=== PATIENT | female | born 1935 | race Caucasian/White ===

== ENCOUNTER → 2017-07-08 | Outpatient (CLI) | payer MEDICARE ==
[~2017-07-08] MED LIST: AMLO10TA82 PO; CALC-80 PO; CEPH-38 PO; CEPH500C PO; FLAX100031 PO; FURO20TA4 PO; HYDR1TAB PO; MELO-195 PO; OMEG1CAP51 PO; RIVA10TA PO; SMV20T PO; TRM50T PO
--- NOTE | 2017-07-09 14:02 | Diagnostic Imaging Report ---
Right breast screening mammogram 2D views with tomosynthesis The current study was also evaluated with a Computer Aided Detection (CAD) system. INDICATION: Screening. No current complaints stated on the questionnaire. The patient has had prior left mastectomy for breast cancer. COMPARISON: 06/25/2016. FINDINGS: The right breast is composed of heterogeneously dense parenchyma which may decrease mammographic sensitivity. No mass, architectural distortion, or suspicious cluster of calcifications seen. Allowing for technique and positional differences, no suspicious change is seen. IMPRESSION: No significant change. ACR BI-RADS Category 2: Benign findings. Result letter will be mailed to the patient. Note: At least 10% of breast cancer is not imaged by mammography. Dictated on workstation # [id number]
== END ==
LOC: RAD 11:04
PROVIDERS: ATTEND Registered Nurse
DX: Z12.31 Encounter for screening mammogram for malignant neoplasm of breast (principal)

== ENCOUNTER → 2018-08-22 | Outpatient (CLI) | payer MEDICARE ==
--- NOTE | 2018-08-22 14:58 | Diagnostic Imaging Report ---
INDICATION: Right breast lump. COMPARISON: Correlation is made with the prior mammogram from 07/08/2017 and 06/25/2016. TECHNIQUE: 2D and 3D unilateral right diagnostic mammography was performed with CAD. FINDINGS: The patient reports no longer having a palpable abnormality in the right breast. The patient states that she did have a palpable abnormality in April; however, she decided not to come in to be evaluated. The palpable abnormality from April is no longer felt. Despite this, a BB marker was placed in the right axillary region where the patient reported the palpable lump was in April. The right breast is heterogeneously dense, limiting the sensitivity of mammography. The overall parenchymal pattern is stable. No mass is seen. No abnormality at the area of the BB marker in the right axilla is seen. No suspicious calcifications are identified. IMPRESSION: No mammographic features suspicious for malignancy are identified. Even so, directed sonographic interrogation of the area of palpable abnormality in the right axilla is recommended and will be performed today. ACR BI-RADS Category 0: Incomplete. (Needs additional imaging evaluation). Result letter will be mailed to the patient. Note: At least 10% of breast cancer is not imaged by mammography. Dictated by: Dictated on workstation # [id number]
--- NOTE | 2018-08-22 19:15 | Diagnostic Imaging Report ---
INDICATION: Palpable lump in the right axilla in April. Patient denies having a palpable abnormality today. The study is performed for further evaluation. Sonographic interrogation of the area of previous palpable abnormality in the right axilla was performed. No sonographic abnormality is seen. No solid or cystic masses are identified. There is a fatty lymph node in the right axilla approximately 1.6 x 1.3 x 0.8 cm. IMPRESSION: BI-RADS category 1. No suspicious sonographic abnormality is seen. Continued close clinical and self breast exams are recommended to confirm stability of previously noted palpable abnormality. Dictated by: Dictated on workstation # [id number]
== END ==
LOC: RAD 14:09
PROVIDERS: ATTEND Registered Nurse
DX: N63.10 Unspecified lump in the right breast, unspecified quadrant (principal); Z90.12 Acquired absence of left breast and nipple

== ENCOUNTER 2018-10-14 12:06 | Inpatient (IN) | payer MEDICARE ==
[~2018-10-14] VITALS: Ht 165.1 cm; Wt 71.9 kg
[2018-10-14] VITALS (12 sets, daily range): BP systolic 116–147; BP diastolic 57–115
[2018-10-14] MEDS ORDERED: CALCIUM CARBONATE 500 MG (TUMS) TAB.CHEW PO PRN (14:30)
[2018-10-14] MEDS ORDERED: ONDANSETRON 4 MG/2 ML (SDV) Z0FRAN IVP PRN (14:30)
[2018-10-14] MEDS ORDERED: DOCUSATE SODIUM 100 MG (COLACE) CAP PO PRN (14:30)
[2018-10-14] MEDS ORDERED: ALPRAZolam 0.25 MG (XANAX) TAB PO PRN (14:30)
[2018-10-14] MEDS ORDERED: DILTIAZEM INJECTION 125 MG in NS (IVPB) 100 ML IV SCH (14:30)
[2018-10-14] MEDS ORDERED: HYDROcodone/APAP 5 MG/325 MG (LORTAB) TAB PO PRN (14:30)
[2018-10-14] MEDS ORDERED: MELATONIN 3 MG TABLET PO PRN (14:30)
--- NOTE | 2018-10-14 15:50 | NUR ---
PT ADMITTED TO ICU9 VIA STRETCHER W/ EMS STAFF. PT ORIENTED TO SURROUNDINGS AND PLACED ON MONITORS. NO QUESTIONS/CONCERNS VOICED. WILL CONT TO MONITOR.
--- NOTE | 2018-10-14 16:10 | NUR ---
DR XIONG NOTIFIED OF PT'S ARRIVAL.
[2018-10-14] MEDS ORDERED: CATHETER FLUSH 10 ML SYR IV PRN (16:15)
[2018-10-14 16:18] LABS: BASOPHILS % (AUTO) 0 % (0-10); EOSINOPHILS % (AUTO) 0 % (0-10); HEMATOCRIT 40 % (35-52); HEMOGLOBIN 13.2 G/DL (11.5-16.0); LYMPHOCYTES # (AUTO) 0.8 X 10^3 (1.0-4.0); LYMPHOCYTES % (AUTO) 10 % (12-44); MEAN CORPUSCULAR HEMOGLOBIN 29 PG (25-34); MEAN CORPUSCULAR HGB CONC 33 G/DL (32-36); MEAN CORPUSCULAR VOLUME 87 FL (80-99); MEAN PLATELET VOLUME 11.2 FL (7.4-10.4); MONOCYTES # (AUTO) 0.3 X 10^3 (0.0-1.0); MONOCYTES % (AUTO) 3 % (0-12); NEUTROPHILS # (AUTO) 7.5 X 10^3 (1.8-7.8); NEUTROPHILS % (AUTO) 87 % (42-75); PLATELET COUNT 205 10^3/uL (130-400); RED BLOOD COUNT 4.57 10^6/uL (4.35-5.85); RED CELL DISTRIBUTION WIDTH 13.7 % (10.0-14.5); WHITE BLOOD COUNT 8.7 10^3/uL (4.3-11.0)
[2018-10-14] MEDS ORDERED: AMLO10TA7 PO (16:18)
[2018-10-14] MEDS ORDERED: SIMV40TA4 PO (16:18)
--- NOTE | 2018-10-14 16:29 | NUR ---
Past[facility] Services received a call from interim sleep tech requesting we check on pt and advise her Teacher Aide will attempt o see her tomorrow. I contacted pt as she arrived at her room and offered prayer and support and delivered the message, Pt was appreciative and doing well.
[2018-10-14] MEDS ORDERED: OMG1KC PO (16:32)
[2018-10-14] MEDS ORDERED: MELO7.5T46 PO (16:32)
[2018-10-14] MEDS ORDERED: FLAX10004 PO ×2 (16:32)
[2018-10-14] MEDS: NS IV 1000 ML 1,000 ML IV SCH (16:32)
[2018-10-14] MEDS ORDERED: DIPH25CA79 PO (16:32)
--- NOTE | 2018-10-14 16:33 | NUR ---
UNABLE TO SPEAK WITH THE PATIENT PRIOR TO THE END OF SHIFT TODAY HOWEVER I CALLED [facility] FOR A LIST OF RECENTLY FILLED MEDICATIONS AND HAD A LIST SENT OVER FROM [facility] OFFICE IN [facility]. I UPDATED THE MED REC ACCORDINGLY BUT DID NOT REVIEW THE MEDICATIONS AT THIS TIME DUE TO NOT VERIFYING WITH THE PATIENT. [facility] FILLED: 10-01-18 SIMVASTATIN 40MG HS #90 08-16-18 AMLODIPINE 10MG DAILY #90 18 MELOXICAM 7.5MG DAILY #30 (LIST FROM DR. RODRIGUEZ STATES PRN) [facility] OFFICE LIST INCLUDES THE FOLLOWING OTC MEDS IN ADDITION THE THE 3 SCRIPTS: BENADRYL 25MG DAILY FISH OIL 3 DAILY NEEDED FLAXSEED OIL 1 AM 2 PM
--- NOTE | 2018-10-14 16:40 | Diagnostic Imaging Report ---
INDICATION: Arrhythmia. EXAMINATION: Portable chest at 4:24 PM. FINDINGS: The heart size and pulmonary vascularity are normal. The lungs are clear. There are no effusions or pneumothoraces. IMPRESSION: No acute abnormalities in the chest. Dictated by: Dictated on workstation # [id number]
[2018-10-14 16:42] LABS: ALANINE AMINOTRANSFERASE 45 U/L (0-55); ALBUMIN 3.7 GM/DL (3.2-4.5); ALKALINE PHOSPHATASE 83 U/L (40-136); BILIRUBIN,TOTAL 0.7 MG/DL (0.1-1.0); BUN/CREATININE RATIO 19; CALCIUM 9.6 MG/DL (8.5-10.1); CARBON DIOXIDE 28 MMOL/L (21-32); CHLORIDE 104 MMOL/L (98-107); CREATININE SERUM 0.77 MG/DL (0.60-1.30); GFR ESTIMATED > 60; GLUCOSE 183 MG/DL (70-105); SODIUM 139 MMOL/L (135-145); TOTAL PROTEIN 6.7 GM/DL (6.4-8.2)
[2018-10-14] MEDS: AMIODARONE INJECTION 450 MG in D5W IV SOLUTION (EXCEL) 250 ML IV SCH (16:44)
[2018-10-14 16:47] LABS: BAND NEUTROPHILS 0 %; BASOPHILS % (MANUAL) 0 %; EOSINOPHILS % (MANUAL) 1 %; LYMPHOCYTES % (MANUAL) 3 %; MONOCYTES % (MANUAL) 1 %; NEUTROPHILS % (MANUAL) 91 %; RBC MORPH NORMAL; REACTIVE LYMPHOCYTES 4 %
--- NOTE | 2018-10-14 17:00 | NUR ---
HOUSE NURSING COMPUTER FORWARDING SYSTEM MARKUP CLERK INFORMED OF ECHO ORDER.
[2018-10-14] MEDS: ACETAMINOPHEN 500 MG TAB (TYLENOL) PO PRN ×2 (17:10→21:28)
[2018-10-14] MEDS ORDERED: AMIODARONE FOR BOLUS 150 MG in D5W 100 ML IVPB 100 ML IV NR (17:15)
[2018-10-14] MEDS ORDERED: DILTIAZEM 25 MG/5 ML INJ (CARDIZEM) VIAL IVP NR (17:15)
--- NOTE | 2018-10-14 17:27 | History & Physical-Hospitalist ---
History of Present Illness HPI/Chief Complaint CC: New onset AF w/RVR HPI: This is an 83-year-old white female clinic patient of Debbie Causey at [facility] who had an uncomplicated right knee replacement by Dr. Heath on Wednesday and had an uneventful postoperative course of which I provided internal medicine hospitalist consultation at [place] during her stay at [facility]. She was ready to be transported to [facility] in [place] when the nurse obtained discharge vital signs and found the patient to have a heart rate of 140. EKG was obtained per protocol revealing new onset atrial fibrillation. Her blood pressure is 132/76 and she was otherwise asymptomatic but did have some palpitations. She was started on IV fluids of normal saline at 70 cc/hour and blood pressure was noted to have decreased to 110/70 so patient was given a 250 cc bolus of normal saline and then given 5 mg of Lopressor IV x1 without complication. Patient is currently doing well and has settled into ICU bed 9 and her family members are surrounding the bed. She is on a Cardizem drip and amiodarone has been added and patient will be maintained on Eliquis first dose was given before transport for stroke prophylaxis. She did report she has had palpitations in the past after she makes her bed at home at times. Source: patient, RN/MD Exam Limitations: no limitations Date Seen 10/14/18 Time Seen by a Provider: 17:00 Attending Physician Marcial Boyle Wen-Chou MD Referring Physician Date of Admission Oct 14, 2018 at 15:50 Home Medications & Allergies Home Medications Reviewed patient Home Medication Reconciliation performed by pharmacy medication reconciliations electrocardiogram technician and/or nursing. Patients Allergies have been reviewed. Allergies Allergies Coded Allergies Tetanus Vaccines & Toxoid (Unverified AllergySWELLING, 07/15/11) Past Gsywbra-Sbiyet-Nxnwrz Hx Past Med/Social Hx: Reviewed Nursing Past Med/Soc Hx, Reviewed and Corrections made Patient Social History Marrital Status: Employed/Student: retired Smoking Status: Never a Smoker Immunizations Up To Date Date of Influenza Vaccine: Jun 27, 2013 Past Medical History Surgeries: Orthopedic Cardiac: Heart Murmur Reproductive: No Musculoskeletal: Arthritis Cancer: Skin Review of Systems Constitutional: see HPI, dizziness, malaise, weakness EENTM: no symptoms reported Respiratory: no symptoms reported Cardiovascular: palpitations Gastrointestinal: loss of appetite, nausea, vomiting Genitourinary: no symptoms reported Musculoskeletal: joint pain Skin: no symptoms reported Psychiatric/Neurological: No Symptoms Reported All Other Systems Reviewed Negative Unless Noted: Yes Physical Exam Physical Exam Vital Signs Vital Signs - First Documented Capillary Refill : Less Than 3 Seconds Height, Weight, BMI Height: 5'5.00" Weight: 158lbs. 7.0oz. [id number]; 26.4 BMI Method:Stated General Appearance: No Apparent Distress, WD/WN, Chronically ill Eyes: Bilateral Eye Normal Inspection, Bilateral Eye PERRL HEENT: PERRL/EOMI, Normal ENT Inspection, Pharynx Normal Neck: Full Range of Motion, Normal Inspection, Non Tender, Supple, Carotid Bruit Respiratory: Chest Non Tender, Lungs Clear, Normal Breath Sounds, No Accessory Muscle Use, No Respiratory Distress Cardiovascular: No Edema, No Gallop, No JVD, No Murmur, Normal Peripheral Pulses, Irregularly Irregular, Tachycardia Gastrointestinal: Normal Bowel Sounds, No Organomegaly, No Pulsatile Mass, Non Tender, Soft Back: Normal Inspection, No CVA Tenderness, No Vertebral Tenderness Extremity: Normal Capillary Refill, Normal Inspection, Normal Range of Motion ( except post op right knee), Non Tender, No Calf Tenderness, No Pedal Edema Neurologic/Psychiatric: Alert, Oriented x3, No Motor/Sensory Deficits, Normal Mood/Affect Skin: Normal Color, Warm/Dry Lymphatic: No Adenopathy Results Results/Procedures Labs Laboratory Tests 10/14/18 16:12 Patient resulted labs reviewed. Assessment/Plan Admission Diagnosis Assessment: New onset AF w/RVR s/p right knee replacement POD # [address] Heath HTN Known cardiac murmur OA Plan: Ambrocio Richey consultation is appreciated Eliquis for CVA prophylaxis ECHO Troponin, BNP Admission Status: Observation Diagnosis/Problems Diagnosis/Problems (1) Atrial fibrillation with rapid ventricular response Status: Acute (2) Hypertension Status: Chronic Qualifiers: Hypertension type: essential hypertension Qualified Codes: I10 - Essential (primary) hypertension (3) Cardiac murmur Status: Chronic (4) Osteoarthritis Status: Chronic Qualifiers: Osteoarthritis location: unspecified site Osteoarthritis type: unspecified Qualified Codes: M19.90 - Unspecified osteoarthritis, unspecified site (5) Total knee replacement status Status: Acute Qualifiers: Laterality: right Qualified Codes: Z96.651 - Presence of right artificial knee joint MARCIAL BOYLE DO Oct 14, 2018 17:27
[2018-10-14] MEDS: APIXABAN 5 MG (ELIQUIS) TABLET PO SCH (21:28)
[2018-10-15] VITALS (15 sets, daily range): BP systolic 105–143; BP diastolic 52–81
[2018-10-15] MEDS: AMIODARONE INJECTION 450 MG in D5W IV SOLUTION (EXCEL) 250 ML IV SCH (01:00)
[2018-10-15] MEDS: NS IV 1000 ML 1,000 ML IV SCH ×2 (01:00→09:22)
[2018-10-15] MEDS: ACETAMINOPHEN 500 MG TAB (TYLENOL) PO PRN ×3 (01:18→14:30)
[2018-10-15 03:34] LABS: BASOPHILS % (AUTO) 0 % (0-10); EOSINOPHILS # (AUTO) 0.2 10^3/uL (0.0-0.3); EOSINOPHILS % (AUTO) 2 % (0-10); HEMATOCRIT 33 % (35-52); HEMOGLOBIN 10.8 G/DL (11.5-16.0); LYMPHOCYTES % (AUTO) 15 % (12-44); MEAN CORPUSCULAR HEMOGLOBIN 29 PG (25-34); MEAN CORPUSCULAR HGB CONC 33 G/DL (32-36); MEAN CORPUSCULAR VOLUME 87 FL (80-99); MEAN PLATELET VOLUME 11.2 FL (7.4-10.4); MONOCYTES # (AUTO) 0.4 X 10^3 (0.0-1.0); MONOCYTES % (AUTO) 6 % (0-12); NEUTROPHILS # (AUTO) 5.2 X 10^3 (1.8-7.8); NEUTROPHILS % (AUTO) 78 % (42-75); PLATELET COUNT 160 10^3/uL (130-400); RED BLOOD COUNT 3.72 10^6/uL (4.35-5.85); RED CELL DISTRIBUTION WIDTH 13.7 % (10.0-14.5); WHITE BLOOD COUNT 6.7 10^3/uL (4.3-11.0)
[2018-10-15 03:52] LABS: ALANINE AMINOTRANSFERASE 38 U/L (0-55); ALBUMIN 2.9 GM/DL (3.2-4.5); ALKALINE PHOSPHATASE 66 U/L (40-136); BILIRUBIN,TOTAL 0.7 MG/DL (0.1-1.0); BUN/CREATININE RATIO 21; CALCIUM 8.5 MG/DL (8.5-10.1); CARBON DIOXIDE 22 MMOL/L (21-32); CHLORIDE 107 MMOL/L (98-107); CREATININE SERUM 0.71 MG/DL (0.60-1.30); GFR ESTIMATED > 60; GLUCOSE 152 MG/DL (70-105); MAGNESIUM 1.8 MG/DL (1.8-2.4); PHOSPHORUS 2.1 MG/DL (2.3-4.7); POTASSIUM 3.5 MMOL/L (3.6-5.0); SODIUM 137 MMOL/L (135-145); TOTAL PROTEIN 5.3 GM/DL (6.4-8.2)
[2018-10-15] MEDS ORDERED: POTASSIUM CL 10MEQ/50ML IVPB 50 ML IV SCH (06:00)
[2018-10-15] MEDS ORDERED: KCL 20 MEQ TAB (K-DUR) PO SCH (06:00)
[2018-10-15] MEDS ORDERED: MAGNESIUM 1 GM/100 ML IVPB 100 ML IV SCH (06:00)
--- NOTE | 2018-10-15 08:37 | Diagnostic Imaging Report ---
Indication: Dyspnea. Comparison: 10/14/2018. Discussion: Single portable upright view of the chest was obtained. Stable normal heart size. No focal consolidation, pleural fluid, or pneumothorax. No osseous abnormality. Impression: 1. Stable negative chest. Dictated by: Dictated on workstation # [id number]
[2018-10-15] MEDS ORDERED: KCL 20 MEQ TAB (K-DUR) PO NR (09:00)
[2018-10-15] MEDS: APIXABAN 5 MG (ELIQUIS) TABLET PO SCH (09:22)
--- NOTE | 2018-10-15 10:12 | Consultation-Cardiology ---
HPI-Cardiology Cardiology Consultation: Date of Consultation 10/15/18 Date of Admission Attending Physician Marcial Boyle DO Admitting Physician Leah Whitman MD Consulting Physician Eitan RICHEY MD HPI: Time Seen by a Provider: 10:10 Chief Complaint: Atrial fibrillation This is a 83-year-old lady who had uncomplicated right knee replacement. However she went into atrial fibrillation with rapid ventricular rate. Her blood pressure was stable. She was given fluids and one dose of Lopressor and transferred to our hospital. She was started on Cardizem infusion and amiodarone infusion overnight. The patient denied any chest pain, shortness of breath, syncope or near syncope. She was started on Eliquis. When I saw the patient she had converted to sinus rhythm. Review of Systems-Cardiology Review of Systems Constitutional: As described under HPI; No As described under HPI, No no symptoms reported, No chills, No fever, No lightheadedness Eyes: No As described under HPI, No no symptoms reported, No blindness, No blurred vision, No contact lenses, No drainage, No decreased acuity, No foreign body sensation, No pain, No vision change Ears/Nose/Throat: No As described under HPI, No no symptoms reported, No chronic hearing loss, No ear discharge, No ear pain, No nasal drainage, No ulcerations Respiratory: No no symptoms reported; As described under HPI; No As described under HPI, No cough, No orthopnea, No shortness of breath, No SOB with excertion Cardiovascular: No no symptoms reported; As described under HPI; No As described under HPI, No chest pain, No edema, No irregular heart rate, No lightheadedness; palpitations Gastrointestinal: No no symptoms reported, No As described under HPI, No abdomen distended, No abdominal pain, No blood streaked bowels, No constipation , No diarrhea, No nausea, No vomiting, No stool coloration changes Genitourinary: No As described under HPI, No burning, No dysuria, No discharge , No frequency, No flank pain, No hematuria, No urgency : Yes : No Skin: No rash, No skin related problems, No ulcerations Psychiatric/Neurological: No anxiety, No depression, No seizure, No focal weakness, No syncope Hematologic: No bleeding abnormalities All Other Systems Reviewed Negative Unless Noted: Yes [id number]-[id number] Hx Patient Social History Marrital Status: Employed/Student: retired Alcohol Use: Denies Use Recreational Drug Use: No Smoking Status: Never a Smoker Physical Abuse Screen: No Sexual Abuse: No Immunizations Up To Date Date of Pneumonia Vaccine: May 28, 2018 Date of Influenza Vaccine: May 28, 2018 Past Medical History PMH As described under Assessment. Allergies and Home Medications Allergies Coded Allergies: Tetanus Vaccines & Toxoid (Unverified Allergy, SWELLING, 07/15/11) Home Medications Amlodipine Besylate 10 Mg Tablet, 10 MG PO DAILY, (Reported) Apixaban 5 Mg Tablet, 5 MG PO BID Prescribed by: MARCIAL BOYLE on 10/15/18 1336 Diphenhydramine HCl 25 Mg Capsule, 25 MG PO DAILY, (Reported) Flaxseed Oil 1,000 Mg Capsule, 1,000 MG PO DAILY, (Reported) Flaxseed Oil 1,000 Mg Capsule, 2,000 MG PO HS, (Reported) Meloxicam 7.5 Mg Tablet, 7.5 MG PO DAILY PRN for PAIN-MILD, (Reported) Metoprolol Succinate 50 Mg Tab.er.24h, 50 MG PO DAILY Prescribed by: MARCIAL BOYLE on 10/15/18 1336 [place] 3 Polyunsat Fatty Acids 1,000 Mg Cap, 3,000 MG PO DAILY, (Reported) Simvastatin 40 Mg Tablet, 40 MG PO HS, (Reported) Patient Home Medication List Home Medication List Reviewed: Yes Physical Exam-Cardiology Physical Exam Vital Signs/I&O 10/15/18 10/15/18 10/15/18 10/15/18 03:00 04:00 04:00 04:00 Temp 98.8 Pulse 56 55 Resp 23 22 B/P (MAP) 129/59 (82) 126/55 (78) Pulse Ox 95 96 97 O2 Delivery Nasal Cannula NIV CPAP Nasal Cannula O2 Flow Rate 2.00 2.00 10/15/18 10/15/18 10/15/18 10/15/18 05:00 06:00 07:00 07:16 Pulse 55 59 57 56 Resp 23 26 21 B/P (MAP) 121/54 (76) 126/57 (80) 120/52 (74) Pulse Ox 97 97 97 O2 Delivery Nasal Cannula Nasal Cannula Nasal Cannula O2 Flow Rate 2.00 2.00 2.00 10/15/18 10/15/18 10/15/18 10/15/18 08:00 08:00 08:15 09:00 Temp 99.8 Pulse 65 66 Resp 29 18 B/P (MAP) 137/62 (87) 105/81 (89) Pulse Ox 90 96 91 O2 Delivery Nasal Cannula Room Air Nasal Cannula O2 Flow Rate 2.00 2.00 10/15/18 10/15/18 10/15/18 10/15/18 10:00 11:00 12:00 12:00 Temp 99.2 Pulse 65 64 65 Resp 27 14 B/P (MAP) 143/63 (89) 143/67 (92) 135/66 (89) Pulse Ox 89 94 O2 Delivery Nasal Cannula Nasal Cannula Nasal Cannula O2 Flow Rate 2.00 2.00 2.00 10/15/18 10/15/18 10/15/18 12:00 13:00 13:10 Pulse 64 66 Resp 27 B/P (MAP) 140/62 (88) Pulse Ox 96 90 O2 Delivery Room Air Nasal Cannula O2 Flow Rate 2.00 10/15/18 00:00 Intake Total 1353 ml Balance 1353 ml Capillary Refill : Less Than 3 Seconds Data Review Labs Laboratory Tests 10/14/18 16:12: White Blood Count 8.7, Red Blood Count 4.57, Hemoglobin 13.2, Hematocrit 40, Mean Corpuscular Volume 87, Mean Corpuscular Hemoglobin 29, Mean Corpuscular Hemoglobin Concent 33, Red Cell Distribution Width 13.7, Platelet Count 205, Mean Platelet Volume 11.2H, Neutrophils (%) (Auto) 87H, Lymphocytes (%) (Auto) 10L, Monocytes (%) (Auto) 3, Eosinophils (%) (Auto) 0, Basophils (%) (Auto) 0, Neutrophils # (Auto) 7.5, Lymphocytes # (Auto) 0.8L, Monocytes # (Auto) 0.3, Eosinophils # (Auto) 0.0, Basophils # (Auto) 0.0, Neutrophils % (Manual) 91, Lymphocytes % (Manual) 3, Monocytes % (Manual) 1, Eosinophils % (Manual) 1, Basophils % (Manual) 0, Band Neutrophils 0, Reactive Lymphocytes 4, Blood Morphology Comment NORMAL, Sodium Level 139, Potassium Level 4.0, Chloride Level 104, Carbon Dioxide Level 28, Anion Gap 7, Blood Urea Nitrogen 15, Creatinine 0.77, Estimat Glomerular Filtration Rate > 60, BUN/Creatinine Ratio 19, Glucose Level 183H, Calcium Level 9.6, Corrected Calcium 9.8, Total Bilirubin 0.7, Aspartate Amino Transf (AST/SGOT) 40H, Alanine Aminotransferase ( ALT/SGPT) 45, Alkaline Phosphatase 83, Troponin I < 0.028, B-Type Natriuretic Peptide 53.2, Total Protein 6.7, Albumin 3.7 10/15/18 03:25: White Blood Count 6.7, Red Blood Count 3.72L, Hemoglobin 10.8L, Hematocrit 33L, Mean Corpuscular Volume 87, Mean Corpuscular Hemoglobin 29, Mean Corpuscular Hemoglobin Concent 33, Red Cell Distribution Width 13.7, Platelet Count 160, Mean Platelet Volume 11.2H, Neutrophils (%) (Auto) 78H, Lymphocytes (%) (Auto) 15, Monocytes (%) (Auto) 6, Eosinophils (%) (Auto) 2, Basophils (%) (Auto) 0, Neutrophils # (Auto) 5.2, Lymphocytes # (Auto) 1.0, Monocytes # (Auto) 0.4, Eosinophils # (Auto) 0.2, Basophils # (Auto) 0.0, Sodium Level 137, Potassium Level 3.5L, Chloride Level 107, Carbon Dioxide Level 22, Anion Gap 8, Blood Urea Nitrogen 15, Creatinine 0.71, Estimat Glomerular Filtration Rate > 60, BUN/ Creatinine Ratio 21, Glucose Level 152H, Calcium Level 8.5, Corrected Calcium 9.4, Total Bilirubin 0.7, Aspartate Amino Transf (AST/SGOT) 33, Alanine Aminotransferase (ALT/SGPT) 38, Alkaline Phosphatase 66, Total Protein 5.3L, Albumin 2.9L, Phosphorus Level 2.1L, Magnesium Level 1.8 ECG Impression ECG Initial ECG Impression: Atrial Fibrillation w/RVR A/P-Cardiology Assessment/Admission Diagnosis Atrial fibrillation with rapid ventricular rate, Recent hip surgery, Hypertension, Hyperlipidemia. Diastolic dysfunction, Mild pulmonary hypertension. Plan Atrial fibrillation with rapid ventricular rate, converted to sinus rhythm on amiodarone and Cardizem infusion. We will discontinue amiodarone. Change Cardizem to metoprolol as an outpatient. Continue Eliquis. Patient can follow- up with me as an outpatient. Recent hip surgery, Hypertension, continue Norvasc and metoprolol. Hyperlipidemia, continue statin therapy. Diastolic dysfunction: Not in congestive heart failure. Mild pulmonary hypertension, continue to follow. Thank you for your consultation. Please call me if you have any questions. Duane Richey MD, FACP, FACC, FSCAI, FHRS, CCDS Interventional Cardiology Cardiac Electrophysiology Vascular Medicine and Endovascular Interventions Clinical Quality Measures DVT/VTE Risk/Contraindication: Risk Factor Score Per Nursin RFS Level Per Nursing on Admit: 4+=Very High Eitan RICHEY MD Oct 15, 2018 10:12 am
[2018-10-15] MEDS ORDERED: meTOproloL SUCCINATE 50 MG (TOPROL XL) TAB PO SCH (12:00)
--- NOTE | 2018-10-15 12:53 | Progress Note-Hospitalist ---
Subjective HPI/CC On Admission Date Seen by Provider: Oct 15, 2018 Time Seen by Provider: 11:30 CC: New onset AF w/RVR HPI: This is an 83-year-old white female clinic patient of Debbie Causey at [facility] who had an uncomplicated right knee replacement by Dr. Heath on Wednesday and had an uneventful postoperative course of which I provided internal medicine hospitalist consultation at [place] during her stay at [facility]. She was ready to be transported to [facility] when the nurse obtained discharge vital signs and found the patient to have a heart rate of 140. EKG was obtained per protocol revealing new onset atrial fibrillation. Her blood pressure is 132/76 and she was otherwise asymptomatic but did have some palpitations. She was started on IV fluids of normal saline at 70 cc/hour and blood pressure was noted to have decreased to 110/70 so patient was given a 250 cc bolus of normal saline and then given 5 mg of Lopressor IV x1 without complication. Patient is currently doing well and has settled into ICU bed 9 and her family members are surrounding the bed. She is on a Cardizem drip and amiodarone has been added and patient will be maintained on Eliquis first dose was given before transport for stroke prophylaxis. She did report she has had palpitations in the past after she makes her bed at home at times. Subjective/Events-last exam Patient doing very well now in normal sinus rhythm as of midnight Amiodarone drip will discontinue shortly Eliquis maintained for stroke prophylaxis due to atrial fibrillation Pain is controlled from knee replacement Family is at bedside including a daughter who is a nurse Updated anticoagulation safety profile Hopefully patient can be discharged back to the residential as planned for recovery Review of Systems General: Fatigue Musculoskeletal: leg pain Objective Exam Vital Signs Vital Signs Date Time Temp Pulse Resp B/P (MAP) Pulse Ox O2 Delivery O2 Flow Rate FiO2 10/15/18 12:00 96 Room Air 10/15/18 12:00 99.2 10/15/18 11:00 64 14 143/67 (92) 2.00 Capillary Refill : Less Than 3 Seconds General Appearance: No Apparent Distress, WD/WN, Chronically ill Respiratory: Chest Non Tender, Lungs Clear, Normal Breath Sounds, No Accessory Muscle Use, No Respiratory Distress Cardiovascular: Regular Rate, Rhythm, No Edema, No Gallop, No JVD, No Murmur, Normal Peripheral Pulses Neurologic/Psychiatric: Alert, Oriented x3, No Motor/Sensory Deficits, Normal Mood/Affect Results/Procedures Lab Laboratory Tests 10/14/18 16:12 10/15/18 03:25 Patient resulted labs reviewed. Assessment/Plan Assessment and Plan Assess & Plan/Chief Complaint Assessment: New onset AF w/RVR now converted to NSR at midnight on Amiodarone drip now placed on BB s/p right knee replacement POD # [address] Heath HTN Known cardiac murmur OA Plan: Dr Richey consultation is appreciated Eliquis for CVA prophylaxis DC to [place] Diagnosis/Problems Diagnosis/Problems (1) Atrial fibrillation with rapid ventricular response Status: Resolved Resolution Date/Time: 10/15/18 @ 13:34 (2) Hypertension Status: Chronic Qualifiers: Hypertension type: essential hypertension Qualified Codes: I10 - Essential (primary) hypertension (3) Cardiac murmur Status: Chronic (4) Osteoarthritis Status: Chronic Qualifiers: Osteoarthritis location: unspecified site Osteoarthritis type: unspecified Qualified Codes: M19.90 - Unspecified osteoarthritis, unspecified site (5) Total knee replacement status Status: Acute Qualifiers: Laterality: right Qualified Codes: Z96.651 - Presence of right artificial knee joint (6) Anticoagulant prescribed at discharge Status: Acute Clinical Quality Measures DVT/VTE Risk/Contraindication: Risk Factor Score Per Nursin RFS Level Per Nursing on Admit: 4+=Very High MARCIAL BOYLE DO Oct 15, 2018 12:53
[2018-10-15] MEDS ORDERED: METO-370 PO (13:36)
[2018-10-15] MEDS ORDERED: APIX5TAB PO (13:36)
--- NOTE | 2018-10-15 13:37 | Short Stay Summary-Hospitalist ---
Short Stay Diagnosis D/C Date (1) Atrial fibrillation with rapid ventricular response (2) Hypertension (3) Cardiac murmur (4) Osteoarthritis (5) Total knee replacement status (6) Anticoagulant prescribed at discharge Clinical Quality Measures DVT/VTE Risk/Contraindication: Risk Factor Score Per Nursin RFS Level Per Nursing on Admit: 4+=Very High MARCIAL BOYLE DO Oct 15, 2018 13:37
--- NOTE | 2018-10-15 14:55 | NUR ---
[id number] REPORT CALLED TO JUSTINA AT [facility], FAXED INFO REQUESTED. [id number] PATIENT TRANSFERRED TO [facility], LEFT ICU VIA WHEELCHAIR WITH TRANSPORT FROM [facility]. PERSONAL BELONGINGS WERE TAKEN HOME BY DAUGHTERS. PATIENT IS STABLE FOR TRANSFER.
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
== END 2018-10-15 14:52 | DRG 310 ==
LOC: EDSTATUS 12:06 → ICU 15:50 → UNDOADMOB 15:50 → UNDODISOB 10-15 14:52
PROVIDERS: ADMIT Internal Medicine; ATTEND Internal Medicine
DX: I48.91 Unspecified atrial fibrillation (principal); I10 Essential (primary) hypertension; R01.1 Cardiac murmur, unspecified; M19.90 Unspecified osteoarthritis, unspecified site; Z96.651 Presence of right artificial knee joint; I27.20 Pulmonary hypertension, unspecified
CPT/HCPCS: 36415; 71045; 80053; 83735; 83880; 84100; 84484; 85007; 85025; 85027; 93005; 93306

== ENCOUNTER 2018-11-25 12:53 | Outpatient (RCR) | payer MEDICARE ==
[~2018-11-25 12:53] MED LIST changes: +AMLO10TA7 PO; +APIX5TAB PO; +DIPH25CA79 PO; +FLAX10004 PO; +MELO7.5T46 PO; +METO-370 PO; +OMG1KC PO; +SIMV40TA4 PO
[2019-01-12] MEDS ORDERED: METO-370 PO (14:54)
[2019-01-12] MEDS ORDERED: APIX5TAB PO (15:03)
[2019-01-12] MEDS ORDERED: LORA10TA76 PO (15:03)
[2019-01-12] MEDS ORDERED: SIMV40TA PO (15:03)
[2019-01-12] MEDS ORDERED: JUICE PLUS PO (15:03)
[2019-01-12] MEDS ORDERED: ACET-2267 PO (15:04)
[2019-01-13] MEDS ORDERED: CEPH-507 PO (11:30)
== END 2019-02-23 | disposition home or self-care (01) ==
LOC: CARD 12:53
PROVIDERS: ATTEND Internal Medicine Interventional Cardiology
DX: I48.0 Paroxysmal atrial fibrillation (principal)
CPT/HCPCS: 93270

== ENCOUNTER → 2018-12-22 | Day surgery (SDC) | payer MEDICARE ==
[~2018-12-22] VITALS: Ht 165.1 cm; Wt 71.7 kg
[~2018-12-22] MED LIST changes: +LIDOCAINE 1% INJ 20 ML 20 ML VIAL ONE
--- OUTSIDE RECORDS SUMMARY | 2018-12-22 11:03 | XMS REPORT | Continuity of Care Document ---
Author Author [facility] Organization [facility] Address Unknown Phone Unavailable Allergies Active Description Code Type Severity Reaction Onset Reported/Identified Relationship to Patient Clinical Status Yes TETANUS-DIPHTHERIA TOXOIDS-TD UNKNOWN UNKNOWN Yes Tetanus Vaccines Toxoid [id number] Drug Allergy Unknown SWELLING 2010 Yes Tetanus Vaccines and Toxoid [id number] Drug Allergy Unknown SWELLING Medications There is [...] E000.8 OTHER EXTERNAL CAUSE STATUS 11/01/2013 DAVID MYAO MD Ot E885.9 FALL FROM SLIPPING, TRIPPING, [...] MARYA MEJIA MD Ot V72.84 06/18/2015 TATY HANNAH Munoz EYE SPECIALIST Ot V10.3 06/18/2015 TATY, HANNAH H EYE SPECIALIST Ot V45.71 06/18/2015 TATY HANNAH H EYE SPECIALIST Ot V76.11 06/25/2016 Ot V76.12 OTH SCREEN [...] V72.84 EXAM PRE-OPERATIVE NOS 06/25/2016 HANNAH POSEY EYE SPECIALIST Ot V10.3 HX OF BREAST MALIGNANCY 06/25/2016 HANNAH PSOEY EYE SPECIALIST Ot V45.71 ACQUIRED ABSENCE OF BREAST AND NIPPLE 06/25/2016 HANNAH POSEY EYE SPECIALIST Ot V76.11 SCRN MAMMO-HIGH RISK PT, MALIGNANT NEOPL 06/25/2016 HANNAH POSEY EYE SPECIALIST Ot Z12.31 ENCNTR SCREEN MAMMOGRAM FOR MALIGNANT [...] V72.84 EXAM PRE-OPERATIVE NOS 06/26/2016 HANNAH POSEY EYE SPECIALIST Ot V10.3 HX OF BREAST MALIGNANCY 06/26/2016 HANNAH POSEY EYE SPECIALIST Ot V45.71 ACQUIRED ABSENCE OF BREAST AND NIPPLE 06/26/2016 HANNAH POSEY EYE SPECIALIST Ot V76.11 SCRN MAMMO-HIGH RISK PT, MALIGNANT NEOPL 06/26/2016 HANNAH POSEY EYE SPECIALIST Ot Z12.31 ENCNTR SCREEN MAMMOGRAM FOR MALIGNANT NE 06/26/2016 TATYHANNAH EYE SPECIALIST Ot Z12.31 ENCNTR SCREEN MAMMOGRAM FOR MALIGNANT NE 07/07/2016 TATY HANNAH Munoz EYE SPECIALIST Ot Z12.31 ENCNTR SCREEN MAMMOGRAM FOR MALIGNANT NE 07/02/2017 Debbie Posey W 272.8 OTHER DISORDERS OF LIPOID METABOLISM 07/02/2017 Debbie Posey W 401.9 UNSPECIFIED ESSENTIAL HYPERTENSION 07/02/2017 Debbie Posey W E78.5 HYPERLIPIDEMIA, UNSPECIFIED 07/02/2017 Taty, Debbie W I10 ESSENTIAL (PRIMARY) HYPERTENSION 07/02/2017 HANNAH POSEY EYE SPECIALIST Ot Z12.31 ENCNTR SCREEN MAMMOGRAM FOR MALIGNANT NE 07/02/2017 Debbie Posey W 272.8 OTHER DISORDERS OF LIPOID METABOLISM 07/02/2017 Debbie Posey W 401.9 UNSPECIFIED ESSENTIAL HYPERTENSION 07/02/2017 Debbie Posey W E78.5 HYPERLIPIDEMIA, UNSPECIFIED 07/02/2017 Debbie Posey W I10 ESSENTIAL (PRIMARY) HYPERTENSION 07/09/2017 HANNAH POSEY EYE SPECIALIST Ot Z12.31 ENCNTR SCREEN MAMMOGRAM FOR MALIGNANT NE 07/14/2017 TATY HANNAH Munoz EYE SPECIALIST Ot Z12.31 ENCNTR SCREEN MAMMOGRAM FOR MALIGNANT NE 07/29/2017 HANNAH POSEY EYE SPECIALIST Ot Z12.31 ENCNTR SCREEN MAMMOGRAM FOR MALIGNANT NE 10/08/2017 Whitman, Cassandra-Cody W 790.6 OTHER ABNORMAL BLOOD CHEMISTRY 10/08/2017 Whitman, Cassandra-Cody W R73.9 HYPERGLYCEMIA, UNSPECIFIED 10/08/2017 Whitman, Cassandra-Cody W 790.6 OTHER ABNORMAL BLOOD CHEMISTRY 10/08/2017 Whitman, Cassandra-Cody W R73.9 HYPERGLYCEMIA, UNSPECIFIED 10/08/2017 Whitman, Cassandra-Cody W 790.6 OTHER ABNORMAL BLOOD CHEMISTRY 10/08/2017 Whitman, Cassandra-Cody W R73.9 HYPERGLYCEMIA, UNSPECIFIED 06/16/2018 Debbie [...] Taty, Debbie W E78.5 HYPERLIPIDEMIA, UNSPECIFIED 06/16/2018 Ttay, Debbie W G47.33 OBSTRUCTIVE SLEEP APNEA (ADULT) (PEDIATRIC) 06/16/2018 Taty, Debbie W I10 ESSENTIAL (PRIMARY) HYPERTENSION 06/16/2018 Taty, Debbie W M25.561 PAIN IN RIGHT KNEE 06/16/2018 Taty, Debbie W R59.0 LOCALIZED ENLARGED LYMPH NODES 07/15/2018 HANNAH POSEY EYE SPECIALIST Ot R92.8 OTH ABN AND INCONCLUSIVE FINDINGS ON DX 08/05/2018 HANNAH POSEY EYE SPECIALIST Ot R92.8 OTH ABN AND INCONCLUSIVE FINDINGS ON DX 08/22/2018 ANTONIO ARREGUIN EYE SPECIALIST Ot V76.12 OTH SCREEN MAMMO-MALIGN NEOPLASM OF MELVA 08/22/2018 CHARLEY PAREDES, CHAPARRITA Bello Ot V76.12 OTH SCREEN MAMMO-MALIGN NEOPLASM OF MELVA 08/22/2018 ROBERTO PAREDES, MARYA Ot V72.84 EXAM PRE-OPERATIVE NOS 08/22/2018 HANNAH POSEY EYE SPECIALIST Ot V10.3 HX OF BREAST MALIGNANCY 08/22/2018 HANNAH POSEY EYE SPECIALIST Ot V45.71 ACQUIRED ABSENCE OF BREAST AND NIPPLE 08/22/2018 TATY HANNAH H EYE SPECIALIST Ot V76.11 SCRN MAMMO-HIGH RISK PT, MALIGNANT NEOPL 08/22/2018 FORD POSEYHRYN Tammy EYE SPECIALIST Ot Z12.31 ENCNTR SCREEN MAMMOGRAM FOR MALIGNANT NE 08/22/2018 TATY, HANNAH H EYE SPECIALIST Ot Z12.31 ENCNTR SCREEN MAMMOGRAM FOR MALIGNANT NE 08/22/2018 TATY, HANNAH H EYE SPECIALIST Ot N63.10 UNSPECIFIED LUMP IN THE RIGHT BREAST, UN 08/22/2018 TATY, HANNAH H EYE SPECIALIST Ot Z90.12 ACQUIRED ABSENCE OF LEFT BREAST AND NIPP 09/16/2018 FORD POSEYHRYN H EYE SPECIALIST Ot N63.10 UNSPECIFIED LUMP IN THE RIGHT BREAST, UN 09/16/2018 TATY, HANNAH H EYE SPECIALIST Ot Z90.12 ACQUIRED ABSENCE OF LEFT BREAST AND NIPP 10/15/2018 BOYLE DO, MARCIAL Ot I10 ESSENTIAL (PRIMARY) HYPERTENSION 10/15/2018 TAMAR RAMIRES MARCIAL Ot I27.20 PULMONARY HYPERTENSION, UNSPECIFIED 10/15/2018 TAMAR RAMIRES MARCIAL Ot I48.91 UNSPECIFIED ATRIAL FIBRILLATION 10/15/2018 TAMAR RAMIRES MARCIAL Ot M19.90 UNSPECIFIED OSTEOARTHRITIS, UNSPECIFIED 10/15/2018 TAMAR DO MARCIAL Ot R01.1 CARDIAC MURMUR, UNSPECIFIED 10/15/2018 TAMAR RAMIRES MARCIAL Ot Z96.651 PRESENCE OF RIGHT ARTIFICIAL KNEE JOINT 11/29/2018 INGA PAREDES, Eitan FERGUSON Ot I48.0 PAROXYSMAL ATRIAL FIBRILLATION Procedures There is no data. Results Test [...] - 10/15/18 03:25 Magnesium 1.8 mg/dL 1.8-2.4 Sed Rate - 11/20/18 15:49 Sed Rate 28 mm/hr 9-15 Encounters ACCT No. Visit Date/Time Discharge Status Pt. Type Provider Facility Loc./Unit Complaint [id number] 11/25/2018 12:53:00 11/25/2018 23:59:59 CLS Outpatient Eitan XIONG MD [facility] CARD PAF [id number] 10/14/2018 15:50:00 10/15/2018 14:52:00 DIS Inpatient MARCIAL BOYLE DO [facility] ICU AFIB WITH RVR, POST KNEE REPLACEMENT [id number] 08/22/2018 14:09:00 08/22/2018 23:59:59 CLS Outpatient TATY, HANNAH H EYE SPECIALIST [facility] RAD R BREAST NODULE [id number] 07/08/2017 11:04:00 07/08/2017 23:59:59 CLS Outpatient TATY, HANNAH H EYE SPECIALIST [facility] RAD SCREENING [id number] 06/25/2016 11:41:00 06/25/2016 23:59:59 CLS Outpatient TATY, HANNAH H EYE SPECIALIST [facility] RAD RT SCREENING [id number] 05/27/2015 14:57:00 05/27/2015 23:59:59 CLS Outpatient TATY, HANNAH H EYE SPECIALIST [facility] RAD SCREENING [id number] 07/27/2014 09:13:00 07/27/2014 13:00:00 DIS Outpatient MARYA MEJIA MD [facility] SDC SCREENING [id number] 07/25/2014 07:55:00 07/25/2014 23:59:59 CLS Outpatient MARYA MEJIA MD [facility] PREOP SCREENING [id number] 05/16/2014 10:06:00 05/16/2014 23:59:59 CLS Outpatient CHAPARRITA MANSFIELD MD [facility] RAD SCREENING [id number] 10/29/2013 11:40:00 11/01/2013 15:45:00 DIS Inpatient DAVID MAYO MD [facility] SURGICAL R ACETABULUM FRACTURE [id number] 05/22/2013 08:48:00 05/22/2013 23:59:59 CLS Outpatient ANTONIO ARREGUIN EYE SPECIALIST [facility] RAD SCREENING [id number] 12/22/2018 12:00:00 PEN PreadEitan Fernandez MD [facility],NURSE ASSESSOR SURVEILLANCE [id number] 05/19/2012 08:46:00 Document Registration [id number] 02/17/2012 20:12:00 Document Registration [id number] 07/20/2011 05:34:00 Document Registration [id number] 07/15/2011 14:51:00 Document Registration [id number] 07/10/2011 12:31:00 Document Registration [id number] 05/18/2011 08:47:00 Document Registration [id number] 04/14/2010 10:05:00 Document Registration [id number] 05/27/2015 23:45:29 ACT Document Registration [id number] 11/20/2018 15:43:00 11/20/2018 23:59:00 DIS Outpatient Chaparrita Mansfield [id number] 06/16/2018 09:03:00 06/16/2018 23:59:00 DIS Outpatient Taty, Debbie [id number] 10/08/2017 16:34:00 10/08/2017 23:59:00 DIS Outpatient Ap WhitmannFlakita [id number] 10/08/2017 15:00:00 10/08/2017 23:59:00 DIS Outpatient Leah Whitman [id number] 10/01/2017 10:12:00 10/01/2017 23:59:00 DIS Outpatient Taty, Debbie [id number] 07/02/2017 09:40:00 07/02/2017 23:59:00 DIS Outpatient Taty, Debbie [id number] 12/18/2016 14:00:00 12/18/2016 23:59:00 DIS Outpatient Chaparrita Mansfield
[2018-12-22 11:33] VITALS: BP 153/63
--- NOTE | 2018-12-22 14:12 | Implantation of Loop Monitor ---
Implant of Loop Monitior IMPLANTATION OF LOOP MONITOR REPORT DATE OF PROCEDURE: 12/22/18 PERFORMING PHYSICIAN: Dr. Darron Richey. INDICATION: Paroxysmal atrial fibrillation, Long-term surveillance of atrial fibrillation PREOP DIAGNOSIS: Proximal atrial fibrillation, Long-term surveillance of atrial fibrillation POSTOP DIAGNOSIS: Paroxysmal Atrial fibrillation, s/p implantation of loop recorder. PROCEDURE DETAILS: The patient is a 83 female with history of paroxysmal atrial fibrillation requiring long-term surveillance. Therefore implantable loop recorder was discussed and agreed with the patient. Informed consent was taken. All risks and complications were discussed at length. The patient was draped and prepped in the usual sterile fashion. Local anesthesia was lidocaine, which was given in the substernal area close to the 4th intercostal space. Loop monitor was implanted according to the protocol. Steri-Strips were placed at the end of the procedure. There were no complications and the patient tolerated the procedure well. The device was interrogated with a voltage of 0.42 mV. ANESTHESIA: Local anesthesia with lidocaine. COMPLICATIONS: None CONTRAST/FLUOROSCOPY: None CONCLUSION: 1. Successful implantation of loop monitor for paroxysmal atrial fibrillation. 2. No complication and the patient tolerated the procedure well. Duaen Richey MD, RS, CCDS Cardiac Electrophysiology Eitan RICHEY MD Dec 22, 2018 2:12 pm
== END | disposition home or self-care (01) ==
LOC: CATH 10:49
PROVIDERS: ATTEND Internal Medicine Interventional Cardiology
DX: I48.0 Paroxysmal atrial fibrillation (principal); I10 Essential (primary) hypertension; E78.5 Hyperlipidemia, unspecified; I27.20 Pulmonary hypertension, unspecified; Z79.01 Long term (current) use of anticoagulants; Z79.899 Other long term (current) drug therapy
CPT/HCPCS: 33285

== ENCOUNTER 2019-01-12 08:01 | Day surgery (SDC) | payer MEDICARE ==
[~2019-01-12] VITALS: Ht 165.1 cm; Wt 67.1 kg
[2019-01-12] VITALS (9 sets, daily range): BP systolic 110–159; BP diastolic 57–79
[~2019-01-12 08:01] MED LIST changes: -LIDOCAINE 1% INJ 20 ML 20 ML VIAL ONE
[2019-01-12] MEDS ORDERED: LIDOCAINE 1% INJ 20 ML 20 ML VIAL ONE (08:05)
[2019-01-12] MEDS ORDERED: HEParin 1000 UNIT/ML (10ML VIAL) FOR BOLUS ONE (08:05)
[2019-01-12] MEDS ORDERED: NS IV 1000 ML 2,000 ML ONE (08:05)
[2019-01-12] MEDS ORDERED: NS IV 1000 ML 1,000 ML IV SCH ×2 (08:18→13:03)
[2019-01-12] MEDS ORDERED: ceFAZolin INJECTION 1,000 MG VIAL IV ONE (08:30)
[2019-01-12] MEDS ORDERED: BACITRACIN INJECTION 50,000 UNIT, SODIUM CHLORIDE 0.9% IRRIGATIO 500 ML IR ONE ×2 (08:30)
[2019-01-12 08:48] LABS: HEMOGLOBIN 13.1 G/DL (11.5-16.0); MEAN PLATELET VOLUME 10.8 FL (7.4-10.4); RED CELL DISTRIBUTION WIDTH 14.7 % (10.0-14.5); WHITE BLOOD COUNT 7.5 10^3/uL (4.3-11.0)
[2019-01-12 09:02] LABS: PROTHROMBIN TIME PATIENT 13.5 SEC (12.2-14.7)
[2019-01-12 09:09] LABS: ALANINE AMINOTRANSFERASE 26 U/L (0-55); ALKALINE PHOSPHATASE 83 U/L (40-136); BILIRUBIN,TOTAL 0.7 MG/DL (0.1-1.0); BUN/CREATININE RATIO 22; CALCIUM 10.5 MG/DL (8.5-10.1); CARBON DIOXIDE 26 MMOL/L (21-32); CHLORIDE 108 MMOL/L (98-107); CREATININE SERUM 0.82 MG/DL (0.60-1.30); GFR ESTIMATED > 60; GLUCOSE 148 MG/DL (70-105); POTASSIUM 4.2 MMOL/L (3.6-5.0); SODIUM 142 MMOL/L (135-145); TOTAL PROTEIN 6.7 GM/DL (6.4-8.2)
[2019-01-12] MEDS ORDERED: ceFAZolin INJECTION 2,000 MG ONE (09:43)
[2019-01-12] MEDS ORDERED: NS (IVPB) 50 ML ONE (09:44)
--- NOTE | 2019-01-12 10:42 | Cardiac Procedure Note-CS/ASA ---
Pre-Procedure Note Pre-Op Procedure Note H&P Reviewed The H&P was reviewed, patient examined and no changes noted. Date H&P Reviewed: Jan 12, 2019 Time H&P Reviewed: 10:42 Conscious Sedation Pre-Proced Time 10:42 ASA Score 3 For ASA 3 and 4: Consider anesthesia and medical clearance. Also, for patients with a history of failed moderate sedation consider anesthesia. Airway Lungs Heart ASA score ASA 1: a normal healthy patient ASA 2: a patient with a mild systemic disease (mid diabetes, controlled hypertension, obesity ASA 3: a patient with a severe systemic disease that limits activity (angina , COPD, prior Myocardial infarction) ASA 4: a patient with an incapacitating disease that is a constant threat to life (CHF, renal failure) ASA 5: a moribund patient not expected to survive 24 hrs. (ruptured aneurysm) ASA 6: a declared brain- patient whose organs are being harvested. For emergent operations, add the letter E after the classification Mallampati Classification Grade 1 Sedation Plan Analgesia, Amnesia, Plan communicated to team members, Discussed options with patient/fam, Discussed risks with patient/fam The patient is an appropriate candidate to undergo the planned procedure, sedation, and anesthesia. The patient immediately re-assessed prior to indication. Eitan XIONG MD Jan 12, 2019 10:42
[2019-01-12] MEDS ORDERED: MIDAZOLAM 5 MG/5 ML (VERSED) VIAL ONE (10:44)
[2019-01-12] MEDS ORDERED: fentaNYL INJECTION 100 MCG/2 ML AMP ONE (10:44)
--- NOTE | 2019-01-12 11:13 | NUR ---
Patient did not bring a list or medication bottles. Stated she did not know what medications she takes. Called [employer] twice to get a fax. Could only verify the Eliquis and Meloxicam.
[2019-01-12] MEDS ORDERED: ONDANSETRON 4 MG/2 ML (SDV) Z0FRAN ONE (11:33)
[2019-01-12] MEDS ORDERED: NEO/POLY/BAC (NEOSPORIN) OINT 15 GM TUBE ONE (12:01)
--- NOTE | 2019-01-12 13:00 | NUR ---
REPORT REC'D. KT IN ICU NOTIFIED THAT PT NEEDS A REMOTE TOMORROW AM.
--- NOTE | 2019-01-12 13:03 | Permanent Pacemaker Implant ---
Dual Chamber Pacemaker Implant PROCEDURE PHYSICIAN: Duane Richey MD DUAL CHAMBER PACEMAKER IMPLANTATION: DATE OF PROCEDURE: 01/12/19 ATTENDING PHYSICIAN: Dr. 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 PREOPERATIVE DIAGNOSIS:Severe symptomatic sinus node dysfunction with tachy- rashel syndrome. POSTOPERATIVE DIAGNOSIS: Successful dual chamber permanent pacemaker implantation. Removal of ILR. HISTORY: 83-year-old lady with history of PAF. She had severe symptomatic sinus node dysfunction with atleast a 3-4 second pause during conversion from PAF. Dual- chamber permanent pacemaker was recommended. PROCEDURE PERFORMED: 1. Dual-chamber permanent pacemaker implantation. 2. Fluoroscopy. 3. Central venous access. 4. ILR removal. ANESTHESIA: Local anesthesia, conscious sedation. COMPLICATIONS: None. ESTIMATED BLOOD LOSS:20 mL. SPECIMENS: None. ORAL ANTICOAGULATION: None. FLUOROSCOPY TIME: 7 minutes. FLUOROSCOPY DOSE: 24 mgy. CONTRAST DOSE: 15 ml. PROCEDURE DETAILS: The patient is a 83 female and after all of the patients questions were answered, the patient was brought to the EP Lab. The patient's left chest was prepped and draped in sterile fashion. A 2 inch horizontal incision was made 1 cm below the clavicle and dissection carried down to the pectoralis fascia. Venogram was done for left upper extremity veins. Using the modified Seldinger technique and under fluoroscopy guidance, the anterior aspect of the left axillary vein was accessed 2 times. The J wires were secured to the drapes with a mosquito clamp. A 7-Macedonian sheath was introduced over one of the J-wires. The RV lead was then inserted. The RV lead was directed across the tricuspid valve to the apical septal portion of the right ventricle. The position was checked in FINNISH and SOTO views. The screw was deployed and the lead connected to the programmer operator numerical control. Close sensing and pacing thresholds were obtained. Diaphragmatic pacing was ruled out. The lead was secured with 2-0 silk ties to the underlying muscle and fascia. Next, a 7-Macedonian sheath was introduced through the remaining J-wire. An atrial lead was then introduced and guided to the level of the right appendage. The screw was deployed and the lead was connected to the interrogator. Good sensing and pacing thresholds were obtained. Diaphragmatic pacing was ruled out. The leads were secured with 2-0 silk ties to the underlying muscle and fascia. The leads were connected to the device in a hermetic fashion. The device and leads were placed in the pocket. Aggressive irrigation with saline solution was done. The device was secured to the underlying muscle and fascia with a 2-0 silk tie. interrogation of the device revealed good integrity of all the leads and good connections. The wound was then closed using 2 layers. The first layer was interrupted 2-0 absorbable Vicryl suture. The last layer was a single subcuticular layer with 4- 0 Vicryl suture. Half inch Steri-Strips and a small dressing were then applied to the wound. The patient tolerated the procedure well and was returned to the recovery room in stable condition with stable vital signs. DEVICE INFORMATION: Medtronic [id number] [place]etta S DR MRI. Model W3 DR 01. Serial number RN [id number] RA LEAD: Model number 507 64 [id number]. Length 45. Serial number [id number]. RV LEAD: Model number 507 652. Length 52. Serial number [id number]. PER-OPERATIVE DEVICE INTERROGATION: Right atrial capture 0.4 V at 0.5 ms. Impedance 753 ohms. P wave 2.5 mV. RV capture 0.5 V at 0.5 ms. Impedance 1505. R wave 12 mV. Explanted implantable loop recorder Medtronic. Serial number [id number]. PLAN: The patient transferred to the ICU. We will continue with two more doses of IV antibiotics. We will check a chest x-ray and interrogate the device in the morning. The patient will continue on oral antibiotics for 3 days. Duane Richey MD, RS, CCDS Cardiac Electrophysiology Eitan RICHEY MD Jan 12, 2019 13:03
[2019-01-12] MEDS ORDERED: PATIENT MAY USE OWN MEDS, ALL PO SCH (13:15)
--- NOTE | 2019-01-12 13:45 | NUR ---
REC'D PER BED FROM [facility]. SEE ASSESSMENT. FAMILY AT BEDSIDE.
[2019-01-12] MEDS ORDERED: METO-370 PO (14:54)
[2019-01-12] MEDS ORDERED: JUICE PLUS PO (15:03)
[2019-01-12] MEDS ORDERED: APIX5TAB PO (15:03)
[2019-01-12] MEDS ORDERED: SIMV40TA PO (15:03)
[2019-01-12] MEDS ORDERED: LORA10TA76 PO (15:03)
[2019-01-12] MEDS ORDERED: ACET-2267 PO (15:04)
--- NOTE | 2019-01-12 15:07 | NUR ---
SPOKE WITH THE PATIENT ABOUT HER MEDICATIONS. SHE WAS ABLE TO LIST TO ME WHAT SHE IS TAKING AND I VERIFIED IT WITH [facility]/ EXT MED HX. SHE TAKES TYLENOL PRN, CLARITIN DAILY, AND JUICE PLUS OTC. 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 SHE NO LONGER TAKING THE MOBIC.
--- NOTE | 2019-01-12 15:08 | NUR ---
SPOKE WITH ROLANDO IN STAIN APPLICATOR REGARDING HOME MEDS AND WHICH WANTED RESTARTED. HE WILL ASK TO CALL AFTER HE IS DONE WITH PROCEDURE. PT THINKS SHE IS TO RESTART ELIQUIS AND FAMILY BELIEVES SHE IS TO HOLD.
--- NOTE | 2019-01-12 15:52 | NUR ---
IVF DC'D ORDERED.
[2019-01-12] MEDS ORDERED: CATHETER FLUSH 10 ML SYR IV PRN (16:00)
--- NOTE | 2019-01-12 16:01 | NUR ---
Initial visit with pt's sons in law and one of her daughters. Pt is Rastafari and demonstrates strong trust in God. She describes loving relationships within her family, among neighbors and within her jl community. Pt is a member of [employer] and continues to do whatever she can to remain active as she enjoys a vibrant social life, cooking, gardening and other household actives which she seeks to maintain as much as possible. Bindery Production Manager led in prayer and offered compassionate presence and empathic listening. Bindery Production Manager also replaced the missing crucifix in pt's room per her permission.
[2019-01-12] MEDS ORDERED: ACETAMINOPHEN PO PRN (16:45)
[2019-01-12] MEDS ORDERED: ACETAMINOPHEN 500 MG TAB (TYLENOL) PO PRN (17:00)
[2019-01-12] MEDS: ceFAZolin INJECTION 1,000 MG in WATER (STERILE) FOR INJECTION 10 ML IV SCH (18:20)
--- NOTE | 2019-01-12 19:15 | Diagnostic Imaging Report ---
INDICATION: Pacemaker placement. TIME OF EXAM: 1:32 p.m. EXAMINATION: Single view of the chest was obtained. COMPARISON: Correlation made with prior study from 10/15/2018. FINDINGS: Dual-lead left subclavian cardiac pacemaker is in place. Lead tips appear to be in the region of the right atrium and right ventricle. No pneumothorax is seen. Lungs are clear. There is no effusion. IMPRESSION: Pacemaker placement. No complicating features are detected. Dictated by: Dictated on workstation # [id number]
[2019-01-12] MEDS: CATHETER FLUSH 10 ML SYR IV SCH (20:24)
[2019-01-12] MEDS ORDERED: SIMVASTATIN 40 MG PO SCH (21:00)
[2019-01-12] MEDS ORDERED: ATORVASTATIN 20 MG (LIPITOR) TABLET PO SCH (21:00)
[2019-01-12] MEDS ORDERED: SIMvastatin 40 MG (ZOCOR) TAB PO SCH (21:00)
[2019-01-13 00:47] VITALS: BP 137/63
[2019-01-13] MEDS: ceFAZolin INJECTION 1,000 MG in WATER (STERILE) FOR INJECTION 10 ML IV SCH (02:29)
[2019-01-13 04:00] VITALS: BP 120/61
[2019-01-13] MEDS: CATHETER FLUSH 10 ML SYR IV SCH (06:16)
[2019-01-13 06:46] LABS: HEMOGLOBIN 12.6 G/DL (11.5-16.0); MEAN PLATELET VOLUME 10.6 FL (7.4-10.4); RED CELL DISTRIBUTION WIDTH 14.8 % (10.0-14.5); WHITE BLOOD COUNT 7.5 10^3/uL (4.3-11.0)
[2019-01-13 07:07] LABS: ALANINE AMINOTRANSFERASE 24 U/L (0-55); ALBUMIN 3.7 GM/DL (3.2-4.5); ALKALINE PHOSPHATASE 76 U/L (40-136); BILIRUBIN,TOTAL 0.6 MG/DL (0.1-1.0); BUN/CREATININE RATIO 17; CALCIUM 10.1 MG/DL (8.5-10.1); CARBON DIOXIDE 24 MMOL/L (21-32); CHLORIDE 108 MMOL/L (98-107); CREATININE SERUM 0.81 MG/DL (0.60-1.30); GFR ESTIMATED > 60; GLUCOSE 121 MG/DL (70-105); POTASSIUM 4.4 MMOL/L (3.6-5.0); SODIUM 141 MMOL/L (135-145); TOTAL PROTEIN 6.4 GM/DL (6.4-8.2)
--- NOTE | 2019-01-13 07:31 | NUR ---
0710-[id number] Martinez RN IN PT ROOM TO INTERROGATE PT PACE MAKER.
[2019-01-13 08:00] VITALS: BP 121/56
[2019-01-13] MEDS ORDERED: meTOproloL SUCCINATE 50 MG (TOPROL XL) TAB PO SCH (09:00)
[2019-01-13] MEDS ORDERED: APIXABAN 5 MG (ELIQUIS) TABLET PO SCH (09:00)
[2019-01-13] MEDS ORDERED: LORATADINE (CLARITIN) 10 MG TAB PO SCH (09:00)
[2019-01-13] MEDS ORDERED: amLODIPine 10 MG (NORVASC) TAB PO SCH (09:00)
[2019-01-13] MEDS ORDERED: NON-FORMULARY MEDICATION 1 EA EA (Loratadine (Claritin) 10 MG) PO SCH (09:00)
[2019-01-13] MEDS ORDERED: NON-FORMULARY MEDICATION 1 EA EA (Amlodipine Besylate 10 MG) PO SCH (09:00)
[2019-01-13] MEDS ORDERED: ONDANSETRON 4 MG (ZOFRAN) ORAL DISSOLVE TAB PO ONE (09:30)
[2019-01-13] MEDS ORDERED: CEPH-507 PO (11:30)
--- NOTE | 2019-01-13 11:32 | Cardiology Discharge Summary ---
Diagnosis/Chief Complaint Date of Admission 01/12/2019 Date of Discharge 01/13/2019 Admission Diagnosis Severe symptomatic sinus node dysfunction, Tachybradycardia syndrome Final/Discharge Diagnosis Dual-chamber permanent pacemaker implantation Chief Complaint/HPI Chief Complaint/HPI This is a 83-year-old lady with history of paroxysmal atrial fibrillation. She complained of symptoms. A loop monitor was placed for long-term surveillance. Device interrogation showed a prolonged pause with paroxysmal atrial fibrillation conversion to sinus rhythm. Symptoms were noted. Therefore dual- chamber permanent pacemaker is recommended Discharge Summary Procedures Successful dual-chamber permanent pacemaker implantation Implantable loop recorder explantation Discharge Physical Examination Normal cardiovascular examination. Normal respiratory examination. Left upper chest does not show any evidence of hematoma, swelling or infection. Hospital Course Was the Problem List Reviewed?: Yes Unremarkable. Device interrogation 24 hours later showed excellent parameters. Pending Labs Discussion & Recommendations Discussion All discharge instructions were discussed at length with the patient. Discharge took over 30 minutes to complete. Follow up appt.: Wound check with RN in one week. Follow-up with Dr. Richey in one month. Dicharge Diet: Regular Diet Activity as Tolerated: Yes Home Medications Reviewed patient Home Medication Reconciliation performed by pharmacy medication reconciliations software test technician and/or nursing. Patients Allergies have been reviewed. Discharge Home Medications: Reviewed and agree with Discharge Medication list on patient's Discharge Instruction sheet Condition at discharge Stable. Instructions to patient/family Discussed at length with the patient and family. Clinical Quality Measures DVT/VTE Risk/Contraindication: Risk Factor Score Per Nursin RFS Level Per Nursing on Admit: 4+=Very High Eitan RICHEY MD Jan 13, 2019 11:32
--- NOTE | 2019-01-13 11:33 | Discharge Inst-Post Device ---
Discharge Inst-Post Device Follow up/Plan wound check with RN in one week. Dr Richey in one month Heart Healthy Diet Do not lift arm on side of device placement above head for 4 weeks. Do not push and pull heavy objects for 4 weeks. Activity as tolerated. Leave dressing on until follow up at the office. Eitan RICHEY MD Jan 13, 2019 11:33 am
[2019-01-13 11:40] VITALS: BP 121/56
--- NOTE | 2019-01-13 11:40 | NUR ---
DISCHARGE INSTRUCTIONS GIVEN TO PATIENT WITH TIME ALLOWED FOR QUESTIONS. IV REMOVED WITH CATHETER TIP INTACT. PERSONAL BELONGINGS GATHERED. PATIENT LEFT VIA WHEELCHAIR ACCOMPANIED BY STAFF. LEFT FACILITY IN PRIVATE VEHICLE.
== END 2019-01-13 11:40 | disposition home or self-care (01) ==
LOC: CATH 08:01 → 4TH 13:43 → CATH 01-13 11:40
PROVIDERS: ATTEND Internal Medicine Interventional Cardiology
DX: I49.5 Sick sinus syndrome (principal); I48.0 Paroxysmal atrial fibrillation; I10 Essential (primary) hypertension; E78.5 Hyperlipidemia, unspecified; I27.20 Pulmonary hypertension, unspecified; Z79.01 Long term (current) use of anticoagulants; Z79.899 Other long term (current) drug therapy
CPT/HCPCS: 33208; 33286; 36415; 71045; 75820; 80053; 85027; 85610; 85730; 87081; 93005

== ENCOUNTER → 2019-09-18 | Outpatient (CLI) | payer MEDICARE ==
[~2019-09-18] MED LIST changes: +ACET-2267 PO; +CEPH-507 PO; +JUICE PLUS PO; +LORA10TA76 PO; +SIMV40TA PO
--- NOTE | 2019-09-18 14:53 | Diagnostic Imaging Report ---
INDICATION: Routine screening. Comparison is made with prior mammograms from 08/22/2018 and 07/08/2017. 2-D and 3-D unilateral right screening mammography was performed. The current study was also evaluated with a Computer Aided Detection (CAD) system. 3-D tomosynthesis was also performed and reviewed. FINDINGS: Right breast is heterogeneously dense, limiting the sensitivity of mammography. The parenchymal pattern is stable. No mass or malignant-appearing microcalcifications are seen. Right axilla is unremarkable. IMPRESSION: No mammographic features suspicious for malignancy are identified. ACR BI-RADS Category 1: Negative. Result letter will be mailed to the patient. Note: At least 10% of breast cancer is not imaged by mammography. Dictated by: Dictated on workstation # [id number]
== END ==
LOC: RAD 11:07
PROVIDERS: ATTEND Registered Nurse
DX: Z12.31 Encounter for screening mammogram for malignant neoplasm of breast (principal); Z90.12 Acquired absence of left breast and nipple

== ENCOUNTER 2019-10-30 12:50 | Outpatient (CLI) | payer MEDICARE ==
[~2019-10-30] VITALS: Ht 165.1 cm; Wt 70.7 kg
[~2019-10-30 12:50] MED LIST changes: -METO-370 PO; +METO50TA7 PO; +SIMV40TA25 PO; -SIMV40TA4 PO
[2019-10-30 13:02] VITALS: BP 144/74
[2019-10-30] MEDS ORDERED: BIOT800T PO (13:18)
[2019-10-30] MEDS ORDERED: METF-397 PO (13:18)
== END 2019-10-30 13:20 | disposition home or self-care (01) ==
LOC: PREOP 12:50
PROVIDERS: ATTEND Podiatrist Foot & Ankle Surgery
DX: Z01.818 Encounter for other preprocedural examination (principal)
CPT/HCPCS: 87081

== ENCOUNTER 2019-11-06 06:00 | Day surgery (SDC) | payer MEDICARE ==
[~2019-11-06] VITALS: Ht 165 cm; Wt 70.7 kg
[2019-11-06] VITALS (11 sets, daily range): BP systolic 29–155; BP diastolic 59–92
[~2019-11-06 06:00] MED LIST changes: +BIOT800T PO; +METF-397 PO
[2019-11-06] MEDS ORDERED: LACTATED RINGERS 1,000 ML IV PRN (06:06)
[2019-11-06] MEDS ORDERED: ceFAZolin INJECTION 1,000 MG in WATER (STERILE) FOR INJECTION 10 ML IV ONE (06:15)
[2019-11-06] MEDS ORDERED: CATHETER FLUSH 10 ML SYR IV PRN (06:30)
[2019-11-06] MEDS ORDERED: ONDANSETRON 4 MG/2 ML (SDV) Z0FRAN ONE (06:40)
[2019-11-06] MEDS ORDERED: FAMOTIDINE 20MG/2ML IV (PEPCID) ONE (06:41)
[2019-11-06] MEDS ORDERED: ONDANSETRON 4 MG/2 ML (SDV) Z0FRAN IV ONE ×2 (06:45→07:15)
[2019-11-06] MEDS ORDERED: FAMOTIDINE 20MG/2ML IV (PEPCID) IV ONE ×2 (06:45→07:15)
[2019-11-06] MEDS ORDERED: proPOfol 200 MG/20 ML (DIPRIVAN) VIAL IV ONE ×2 (07:09→07:58)
[2019-11-06] MEDS ORDERED: LIDOCAINE PF 2% 5 ML (XYLOCAINE) VIAL ONE (07:09)
[2019-11-06] MEDS ORDERED: BUPIVACAINE 0.5% 30 ML (SENSORCAINE) VIAL ONE (07:10)
[2019-11-06] MEDS ORDERED: DEXAMETHASONE 10 MG/ML (DECADRON) 1 ML VIAL ONE (07:10)
[2019-11-06] MEDS ORDERED: MIDAZOLAM 2 MG/2 ML (VERSED) VIAL ONE (07:10)
[2019-11-06] MEDS ORDERED: LIDOCAINE 1% INJ 20 ML 20 ML VIAL ONE (07:10)
--- NOTE | 2019-11-06 07:42 | Progress Note-Pre Operative ---
Pre-Operative Progress Note H&P Reviewed The H&P was reviewed, patient examined and no changes noted. 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
[2019-11-06] MEDS ORDERED: LACTATED RINGERS 1,000 ML IV SCH (08:38)
--- NOTE | 2019-11-06 08:38 | Progress Note-Post Operative ---
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
[2019-11-06] MEDS ORDERED: ACHD5005 PO (08:41)
[2019-11-06] MEDS ORDERED: CEPH500C PO (08:41)
[2019-11-06] MEDS ORDERED: morphine INJ 10 MG/ML 1ML (SYR OR VIAL) IVP ONE (08:45)
[2019-11-06] MEDS ORDERED: HYDROcodone/APAP 5 MG/325 MG (LORTAB) TAB PO PRN (08:45)
[2019-11-06] MEDS ORDERED: ONDANSETRON 4 MG/2 ML (SDV) Z0FRAN IVP PRN (08:45)
--- NOTE | 2019-11-06 09:29 | Diagnostic Imaging Report ---
INDICATION: Postop right foot surgery. AP and lateral views of the right foot are obtained. There is no recent prior study for comparison. Comparison made to previous study of 07/20/2011. FINDINGS: When compared to the prior study, postop changes in the 1st and 2nd metatarsals and 1st proximal phalanx are unchanged. There is no acute bony abnormality. There has been fusion of the 3rd digit with surgical pin in place. The alignment is anatomic. There are diffuse degenerative findings of the interphalangeal joints. IMPRESSION: Postop and degenerative findings of the right foot as described above. Patient is status post fusion of 3rd digit with anatomic alignment. Dictated by: Dictated on workstation # [id number]
--- NOTE | 2019-11-06 11:06 | Anesthesia-General Post-Op ---
General Patient Condition Mental Status/LOC: Same as Preop Cardiovascular: Satisfactory Nausea/Vomiting: Absent Respiratory: Satisfactory Pain: Controlled Complications: Absent Post Op Complications Complications None Follow Up Care/Instructions Patient Instructions None needed. Anesthesia/Patient Condition Patient Condition Patient was seen after the procedure and she was doing well, no complaints, stable vital signs, no apparent adverse anesthesia problems. INÉS MONTERROSO DO Nov 06, 2019 11:06
--- NOTE | 2019-11-06 18:10 | OPERATIVE REPORT ---
DATE OF SERVICE: 11/06/2019 SURGEON: Meghan Garcia DPM PREOPERATIVE DIAGNOSIS: Hammer digit syndrome, right third toe. POSTOPERATIVE DIAGNOSIS: Hammer digit syndrome, right third toe. PROCEDURE: Arthrodesis of the right third toe with K-wire fixation. WOUND CLASS: Clean. ANESTHESIA: General. HEMOSTASIS: Pneumatic ankle tourniquet at 250 mmHg. INDICATIONS: This 84-year-old female presents complaining of a painful right third toe. Conservative therapy is met with unsatisfactory results and the patient is agreeable to surgical intervention after risks and complications were discussed at length. No guarantees were extended to the patient and she is willing to proceed. DESCRIPTION OF PROCEDURE: The patient was brought back to the operating table, placed in secure supine position. Appropriate timeout was performed. Pneumatic ankle tourniquet was placed on the right lower extremity over several layers of padding. The right third toe was anesthetized utilizing 1:1 mixture of 1% Xylocaine, 0.5% Marcaine injected in a local infusion to the right third digit utilizing aseptic technique. An attempt at monitored anesthesia care was performed at this point; however, the patient continued to move her leg and foot. So after the foot was prepped and draped in an attempt an incision was made. She continues to move, it was then decided that a general anesthetic would be in the patient's best interest. After an LMA was introduced and general anesthetic performed the patient's movements became much less. Attention was then directed to the dorsal aspect of the right third toe where a 3 cm longitudinal linear incision was created from the metatarsophalangeal joint to the distal interphalangeal joint. The incision was deepened down to the subcutaneous tissue where the incision was deepened down further with blunt and sharp dissection down to the extensor tendon where a Z slide lengthening was performed. The extensor tendon was reflected proximally and extensor dominique released overlying the metatarsophalangeal joint. A dorsal capsulorrhaphy was performed. This allowed the proximal phalanx to come down into more rectus alignment. Next, the medial lateral collateral ligaments were released to the proximal interphalangeal joint. This demonstrated a hypertrophic head of the proximal phalanx. Next, the head of the proximal phalanx was fashioned into a peg utilizing a power sagittal saw and power bur. The base of the middle phalanx had a power dinesh utilized to create a hole for the peg-in-hole type I arthrodesis. A 0.054 smooth K-wire was introduced into the digit holding the digit in rectus alignment. Excellent alignment was then noted to the digit. The digit did have some lateral deviation, so the lateral ligament at the metatarsophalangeal joint was released at the base of the proximal phalanx. The K-wire was then retrograded across the metatarsophalangeal joint and the tourniquet released. Unfortunately, the cap refill time was not unsatisfactory at this point and the K-wire was pulled back into the digit only and not across the metatarsophalangeal joint. This allowed for unsatisfactory alignment of the digit; however, there is appropriate cap refill time to the digit noted at this time. The wound was flushed with copious amounts of normal saline and closure was then performed in layers. Deep closure was performed with 3-0 Vicryl, superficial with 4-0 Vicryl, skin closed with 4-0 Prolene in a horizontal mattress type stitch. Postoperative dressing consisted of Betadine soaked Adaptic, sterile 4 x 4, sterile Kerlix all secured with Coban wrap. The patient tolerated the anesthesia and procedure well, was transported from the operating room to the recovery area with vital signs stable and vascular status intact to all digits of the right foot. She is to follow up in my office in one week period of time or sooner if necessary. She was given prescription for Keflex and Vicodin. She is to be partial weightbearing with crutches. We will see the patient back in approximately one week period of time or sooner if need be. Job ID: [id number] DocumentID: [id number] Dictated Date: 11/06/2019 08:47:36 [employer] Date: 11/06/2019 18:10:07 Dictated By: MEGHAN GARCIA DPM
== END 2019-11-06 10:50 | disposition home or self-care (01) ==
LOC: SDC 06:00
PROVIDERS: ATTEND Podiatrist Foot & Ankle Surgery
DX: M20.41 Other hammer toe(s) (acquired), right foot (principal); M19.90 Unspecified osteoarthritis, unspecified site; I10 Essential (primary) hypertension; I48.0 Paroxysmal atrial fibrillation; G47.33 Obstructive sleep apnea (adult) (pediatric); E78.5 Hyperlipidemia, unspecified; E78.00 Pure hypercholesterolemia, unspecified; E11.65 Type 2 diabetes mellitus with hyperglycemia; Z88.7 Allergy status to serum and vaccine; Z99.89 Dependence on other enabling machines and devices; Z79.84 Long term (current) use of oral hypoglycemic drugs; Z79.899 Other long term (current) drug therapy; Z85.9 Personal history of malignant neoplasm, unspecified
CPT/HCPCS: 73620; 82962

== ENCOUNTER → 2020-04-17 | Outpatient (CLI) | payer MEDICARE ==
[~2020-04-17] MED LIST changes: +ACHD5005 PO
== END ==
LOC: CARD 12:39
PROVIDERS: ATTEND Internal Medicine Interventional Cardiology
DX: I48.0 Paroxysmal atrial fibrillation (principal); I27.20 Pulmonary hypertension, unspecified; I07.1 Rheumatic tricuspid insufficiency
CPT/HCPCS: 93306

== ENCOUNTER → 2020-12-14 | Outpatient (CLI) | payer OTHER ==
[~2020-12-14] MED LIST changes: +AMLO-251 PO; -AMLO10TA7 PO
== END ==
LOC: GIR 16:21
PROVIDERS: ATTEND Registered Nurse
DX: Z01.89 Encounter for other specified special examinations (principal)
CPT/HCPCS: 84132

== ENCOUNTER → 2022-01-11 | Outpatient (CLI) | payer OTHER, MEDICARE ==
[2022-01-11 07:36] LABS: ALBUMIN 3.2 GM/DL (3.2-4.5); POTASSIUM 4.1 MMOL/L (3.6-5.0)
[2022-01-11 07:37] LABS: CALCIUM 9.1 MG/DL (8.5-10.1)
[2022-01-11 07:39] LABS: TOTAL PROTEIN 4.9 GM/DL (6.4-8.2)
[2022-01-11 07:41] LABS: BILIRUBIN,TOTAL 0.3 MG/DL (0.1-1.0)
[2022-01-11 07:42] LABS: CREATININE SERUM 0.62 MG/DL (0.60-1.30)
== END ==
LOC: LABNPT 07:13
PROVIDERS: ATTEND Internal Medicine
DX: R82.1 Myoglobinuria (principal)
CPT/HCPCS: 80053; 82550; 83874

== ENCOUNTER → 2022-01-12 | Outpatient (CLI) | payer OTHER, MEDICARE ==
[2022-01-12 07:39] LABS: ALBUMIN 3.2 GM/DL (3.2-4.5); BILIRUBIN,TOTAL 0.3 MG/DL (0.1-1.0); CALCIUM 9.2 MG/DL (8.5-10.1); CREATININE SERUM 0.57 MG/DL (0.60-1.30); POTASSIUM 4.3 MMOL/L (3.6-5.0); TOTAL PROTEIN 5.5 GM/DL (6.4-8.2)
== END ==
LOC: LABNPT 07:00
PROVIDERS: ATTEND Internal Medicine
DX: Z01.89 Encounter for other specified special examinations (principal)
CPT/HCPCS: 80053; 82550; 83874

== ENCOUNTER → 2023-03-10 | Outpatient (CLI) | payer MEDICARE ==
[~2023-03-10] MED LIST changes: +SIMV-334 PO; -SIMV40TA PO
== END ==
LOC: CARD 13:29
PROVIDERS: ATTEND Nurse Practitioner Family
DX: I51.7 Cardiomegaly (principal); I34.0 Nonrheumatic mitral (valve) insufficiency; I51.9 Heart disease, unspecified
CPT/HCPCS: 93306